=== PATIENT | female | born 1990 | race Caucasian/White ===

== ENCOUNTER 2017-12-15 23:00 | Emergency (ER) | payer MEDICAID ==
[~2017-12-15] VITALS: Ht 170.2 cm; Wt 104.0 kg
[2017-12-15] MEDS ORDERED: SODIUM CHLORIDE 0.9% 1,000 ML IV ONE (23:15)
[2017-12-15 23:47] LABS: BASOPHILS % 0.3 % (0.0-2.0); EOSINOPHILS % 0.8 % (0.0-5.0); HEMATOCRIT. 43.8 % (36.0-48.0); LYMPHOCYTES % 27.9 % (20.0-50.0); MEAN CORPUSCULAR HEMOGLOBIN 29.8 pg (28.0-32.0); MEAN CORPUSCULAR VOLUME 87.1 fL (81.0-99.0); MEAN PLATELET VOLUME 9.5 fl (7.4-10.4); MONOCYTES % 6.9 % (2.0-8.0); NEUTROPHILS % 64.1 % (40.0-76.0); PLATELET 231 x1000/uL (130-400); RED BLOOD CELL COUNT 5.03 mill/uL (4.2-5.4); RED CELL DISTRIBUTION WIDTH 15.9 % (11.6-14.6)
[2017-12-15 23:51] LABS: CHLORIDE 107 mEq/L (98-107)
[2017-12-15 23:52] LABS: INR 1.1; PROTHROMBIN TIME 11.6 sec (9.4-11.6)
[2017-12-15 23:53] LABS: HCG SCREEN NEGATIVE
[2017-12-15 23:55] LABS: ETHANOL BLOOD < 10 mg/dL
[2017-12-16] MEDS ORDERED: SODIUM CHLORIDE 0.9% 1,000 ML IV ONE (00:22)
[2017-12-16] MEDS ORDERED: POTASSIUM BICARB/CIT ACID 25 MEQ TABLET.EFF PO SCH (01:15)
[2017-12-16 04:00] VITALS: BP 134/81
== END 2017-12-16 04:11 | disposition home or self-care (01) ==
LOC: ER 23:00
DX: F12.10 Cannabis abuse, uncomplicated (principal); E87.6 Hypokalemia; R41.0 Disorientation, unspecified; Z79.899 Other long term (current) drug therapy
CPT/HCPCS: 36415; 80053; 80307; 80329; 83735; 84703; 85025; 85610; 99284; G0482; J7030; Z7610